=== PATIENT | female | born 1950 | race Caucasian/White ===

== ENCOUNTER → 2016-09-22 | Outpatient (CLI) | payer OTHER | END | disposition home or self-care (01) | DX: M16.11 Unilateral primary osteoarthritis, right hip (principal); M25.551 Pain in right hip; M25.651 Stiffness of right hip, not elsewhere classified; M62.89 Other specified disorders of muscle; R26.2 Difficulty in walking, not elsewhere classified | CPT/HCPCS: 97110 GP; 97150 GO; 97161 GP; 97165 GO; G8978 GP; G8979 GP; G8980 GP; G8987 GO; G8988 GO; G8989 GO ==

== ENCOUNTER 2016-10-26 09:22 | Inpatient (IN) | payer OTHER ==
[~2016-10-26] VITALS: Ht 160 cm; Wt 71.5 kg
[~2016-10-26 09:22] MED LIST: IRON325 M1 PO; MELATONIN5 M1 PO; MULTIVITAMIN1 EAC2 PO; OMEPRAZOLE20 M2 PO; REMICADE10 MG/ML IV; SYNTHROID88 MCG PO; VOLTAREN75 MG PO
[2016-10-26 11:58] VITALS: BP 128/71
[2016-10-26 17:31] LABS: HEMATOCRIT 39.3 % (36.0-46.0); MCHC 33.8 G/DL (30.0-36.0); MCV 91.6 FL (83-99); MEAN PLAT.VOLUME 9.9 uM^3 (9.5-12.4); PLATELET COUNT 159 K/uL (156-360); RBC DIS.WIDTH-CV 14.1 % (11.8-14.6); RBC DIS.WIDTH-SD 47.1 % (39-53); RED BLOOD COUNT 4.29 M/uL (3.80-5.20); WHITE BLOOD COUNT 8.8 K/uL (4.1-10.2)
[2016-10-26 20:03] VITALS: BP 107/56
[2016-10-27] VITALS (9 sets, daily range): BP systolic 95–114; BP diastolic 49–62
[2016-10-27 06:57] LABS: ANION GAP 8 MEQ/L (2-14); CHLORIDE 106 MEQ/L (99-109); GFR ESTIMATE (CALCULATED) > 59 mL/min/; GLUCOSE 116 mg/dL (70-99); POTASSIUM 3.8 MEQ/L (3.7-5.4); SAMPLE HEMOLYSIS CHECK 0; SAMPLE ICTERIC CHECK 0; SAMPLE LIPEMIA CHECK 0; SODIUM 140 MEQ/L (136-147); UREA NITROGEN (BUN) 11 mg/dL (9-23)
[2016-10-27 17:52] LABS: MCV 91.9 FL (83-99)
[2016-10-28 04:00] VITALS: BP 114/55
[2016-10-28 08:00] VITALS: BP 106/55
[2016-10-28] MEDS ORDERED: SENNA PLUS TAB1 EACH PO (08:14)
[2016-10-28] MEDS ORDERED: ENDOCET 5-3251 EACH PO (08:15)
[2016-10-28] MEDS ORDERED: LOVENOX40 MG/0.4 SC (08:15)
[2016-10-28 12:00] VITALS: BP 108/51
[2016-10-28 15:30] VITALS: BP 110/55
== END 2016-10-28 15:40 | disposition home health service (06) | DRG 470 ==
LOC: 2SOUTH 09:22 → 3WEST 11:11 → 2SOUTH 11:11 → 3WEST 19:52
PROVIDERS: Orthopaedic Surgery
PROC: 0SR902A Replacement of Right Hip Joint with Metal on Polyethylene Synthetic Substitute, Uncemented, Open Approach (ICD-10-PCS; principal; 2016-10-26)
DX: M16.11 Unilateral primary osteoarthritis, right hip (principal); M06.9 Rheumatoid arthritis, unspecified; E78.2 Mixed hyperlipidemia; E03.9 Hypothyroidism, unspecified; M41.9 Scoliosis, unspecified
CPT/HCPCS: 72170; 73501; 80048; 85014; 85018; 85027; 86850; 86900; 86901; 86920; 97530 GO; J0690; J1100; J1170; J1200; J1650; J2250; J2405; J7050